=== PATIENT | female | born 1950 | race Caucasian/White ===

== ENCOUNTER 2018-07-22 10:55 | Emergency (ER) | payer MEDICARE, BC ==
[2018-07-22] MEDS ORDERED: ISOVUE-370 76%-LOCM 1 ML ONE (11:12)
[2018-07-22] MEDS ORDERED: Ondansetron HCl/PF 4 MG/2 ML Vial ONE (11:22)
[2018-07-22 11:42] LABS: #Monocytes 0.3 thou/uL (0.11-0.59); #Neutrophils 11.5 thou/uL (1.40-6.50); %Basophils 0.2 % (0.0-1.0); %Eosinophils 0.2 % (0.0-10.0); %Lymphocytes 14.1 % (21.0-51.0); %Monocytes 2.3 % (0.0-10.0); %Neutrophils 83.2 % (42.0-75.0); Hemoglobin 17.6 g/dL (12.0-16.0); Mean Corpuscular HGB CONC 33.2 g/dL (32.0-36.0); Mean Corpuscular Hemoglobin 31.9 pg (27.0-31.0); Mean Corpuscular Volume 95.9 fL (78.0-98.0); Mean Platelet Volume 7.7 fL (7.4-10.4); Platelet Count 371 thou/uL (130-400); RBC Distribution Width 12.8 % (11.5-14.5); Red Blood Cell (RBC) Count 5.52 mill/uL (4.20-5.40); White Blood Cell (WBC) Count 13.9 thou/uL (4.8-10.8)
[2018-07-22 12:00] LABS: ALT (SGPT) 30 U/L (8-55); AST (SGOT) 27 U/L (5-34); Albumin 4.9 g/dL (3.4-4.8); Alkaline Phosphatase 66 U/L (40-150); Anion Gap 17 mmol/L (10-20); BUN (Urea Nitrogen) 15 mg/dL (9.8-20.1); Bilirubin, Total 0.9 mg/dL (0.2-1.2); Calc. Creatinine Clearance 0 mL/min (70-130); Calcium 10.1 mg/dL (7.8-10.44); Carbon Dioxide 23 mmol/L (23-31); Chloride 102 mmol/L (98-107); Estimated GFR-MDRD 51; Globulin 3.6 g/dL (2.4-3.5); Glucose 144 mg/dL (80-115); Lipase 10 U/L (8-78); Potassium 3.2 mmol/L (3.5-5.1); Protein, Total 8.5 g/dL (6.0-8.3); Sodium 139 mmol/L (136-145)
[2018-07-22 12:48] LABS: Bilirubin Negative (Negative); Blood, Urine Moderate (Negative); Clarity CLEAR (Clear); Glucose, Urine (Dipstick) Negative (Negative); Leukocyte Negative (Negative); Nitrite Negative (Negative); Protein, Urine (Dipstick) 30 mg/dL (Neg-Trace); Specific Gravity, Urine 1.034 (1.002-1.036); Urobilinogen 0.2 mg/dL (0.2-1.0)
[2018-07-22] MEDS ORDERED: Meclizine HCl 25 MG TAB ONE (12:48)
[2018-07-22] MEDS ORDERED: Promethazine HCl 25 MG/ML VIAL ONE (12:48)
[2018-07-22 12:51] LABS: Bacteria/HPF None Seen HPF (None Seen); Hyaline Casts/LPF 0-3 HYALINE CAST LPF (0-3 Hyaline); Pathc Cast-AUWi Flag 0.43 (0-2.49)
--- NOTE | 2018-07-22 13:28 | CT ---
CT ABDOMEN AND PELVIS WITH IV CONTRAST: Date: 07/22/18 HISTORY: Abdominal pain. FINDINGS: Correlation is made with noncontrasted study of 04/11/16. The lung bases are clear. No free air, free fluid, or lymphadenopathy seen in the abdomen or pelvis. No calcified gallstones are seen. The liver, spleen, pancreas, and left adrenal gland are normal. A s mall (8.0 mm) right adrenal adenoma is stable. Small low density lesions in the kidneys are likely cy sts. Tiny nonobstructing calculi are present in the kidneys. No hydroureteronephrosis is noted on eit her side. No calculi seen in the ureters or the urinary bladder. There are vascular calcifications of the infrarenal abdominal aorta measuring 2.8 cm. No aneurysm is seen. The small bowel loops are not abnormally dilated. There are degenerative changes in the spine. A small hiatal hernia is present. IMPRESSION: 1. Nonobstructing tiny renal calculi. 2. Stable 8.0 mm right adrenal adenoma. 3. No acute process. 4. Small hiatal hernia. POS: [facility]
== END 2018-07-22 14:23 | disposition home or self-care (01) ==
LOC: ERS 10:55
DX: E86.0 Dehydration (principal); E87.6 Hypokalemia; I25.10 Atherosclerotic heart disease of native coronary artery without angina pectoris; I10 Essential (primary) hypertension; I25.2 Old myocardial infarction; Z87.891 Personal history of nicotine dependence; Z79.899 Other long term (current) drug therapy
CPT/HCPCS: 74177; 80053; 81003; 81015; 83690; 85025; 87633; 87798; 87804; 96361; 96365; 96375; J2405; J2550

== ENCOUNTER 2018-07-26 18:18 | Inpatient (IN) | payer MEDICARE, BC ==
[2018-07-26 19:24] LABS: #Basophils 0.2 thou/uL (0.0-0.2); #Lymphocytes 3.6 thou/uL (1.20-3.40); #Monocytes 1.1 thou/uL (0.11-0.59); #Neutrophils 9.7 thou/uL (1.40-6.50); %Basophils 1.1 % (0.0-1.0); %Eosinophils 0.1 % (0.0-10.0); %Lymphocytes 24.4 % (21.0-51.0); %Monocytes 7.7 % (0.0-10.0); %Neutrophils 66.7 % (42.0-75.0); Hemoglobin 18.3 g/dL (12.0-16.0); Mean Corpuscular HGB CONC 33.5 g/dL (32.0-36.0); Mean Corpuscular Hemoglobin 32.1 pg (27.0-31.0); Mean Corpuscular Volume 95.9 fL (78.0-98.0); Mean Platelet Volume 7.5 fL (7.4-10.4); Platelet Count 364 thou/uL (130-400); RBC Distribution Width 12.3 % (11.5-14.5); White Blood Cell (WBC) Count 14.6 thou/uL (4.8-10.8)
[2018-07-26 19:30] LABS: Bilirubin Negative (Negative); Blood, Urine Trace (Negative); Clarity CLEAR (Clear); Glucose, Urine (Dipstick) Negative (Negative); Leukocyte Negative (Negative); Nitrite Negative (Negative); Protein, Urine (Dipstick) Negative (Neg-Trace); Specific Gravity, Urine 1.004 (1.002-1.036); Urobilinogen 0.2 mg/dL (0.2-1.0); pH, Urine 6.5 (5.0-9.0)
[2018-07-26 19:38] LABS: Bacteria/HPF None Seen HPF (None Seen); Hyaline Casts/LPF 0-3 HYALINE CAST LPF (0-3 Hyaline); Squamous Epithelial None Seen HPF (0-3); WBC/HPF 0-3 HPF (0-3)
--- NOTE | 2018-07-26 19:43 | CT ---
CT OF HEAD NONCONTRAST: 07/26/18 INDICATION: Weakness, paresthesias. FINDINGS: There is no ventriculomegaly, mass effect, midline shift, or acute intracranial hemorrhage. 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 The paranasal sinuses are clear. IMPRESSION: No acute intracranial abnormalities. POS: [facility]
[2018-07-26 19:46] LABS: ALT (SGPT) 18 U/L (8-55); AST (SGOT) 16 U/L (5-34); Albumin 4.7 g/dL (3.4-4.8); Alkaline Phosphatase 57 U/L (40-150); Anion Gap 14 mmol/L (10-20); BUN (Urea Nitrogen) 14 mg/dL (9.8-20.1); Bilirubin, Total 0.8 mg/dL (0.2-1.2); Calc. Creatinine Clearance 0 mL/min (70-130); Calcium 9.7 mg/dL (7.8-10.44); Carbon Dioxide 22 mmol/L (23-31); Chloride 102 mmol/L (98-107); Estimated GFR-MDRD 62; Globulin 3.3 g/dL (2.4-3.5); Glucose 120 mg/dL (80-115); Potassium 3.4 mmol/L (3.5-5.1); Sodium 135 mmol/L (136-145)
--- NOTE | 2018-07-26 19:46 | RAD ---
FRONTAL VIEW CHEST: 07/26/18 INDICATION: Weakness. FINDINGS: There is no consolidation, effusion or pneumothorax. No free air beneath the hemidiaphragms. The card iac silhouette is normal in size. IMPRESSION: No focal consolidation. POS: [facility]
[2018-07-26] MEDS ORDERED: Ketorolac Tromethamine 30 MG/ML VIAL ONE (21:32)
[2018-07-26] MEDS ORDERED: Promethazine HCl 25 MG/ML VIAL ONE (21:32)
[2018-07-26] MEDS ORDERED: diphenhydrAMINE 12.5 MG/5 ML UDCUP ONE ×2 (21:32→22:01)
[2018-07-26] MEDS ORDERED: Ondansetron HCl/PF 4 MG/2 ML Vial ONE (21:32)
[2018-07-26] MEDS ORDERED: diphenhydrAMINE 25 MG CAP ONE (22:02)
[2018-07-26] MEDS ORDERED: Ondansetron HCl/PF 4 MG/2 ML Vial IVP PRN (23:06)
[2018-07-26] MEDS ORDERED: Acetaminophen 650 MG Suppository PR PRN (23:06)
[2018-07-26] MEDS ORDERED: Ondansetron ODT 4 MG TAB PO PRN (23:06)
[2018-07-27] MEDS: Acetaminophen 325 MG TAB PO PRN ×3 (00:01→17:58)
[2018-07-27] MEDS: Sodium Chloride 0.9% 1,000 ML IV SCH ×2 (00:08→17:56)
[2018-07-27 05:54] LABS: #Basophils 0.1 thou/uL (0.0-0.2); #Lymphocytes 3.1 thou/uL (1.20-3.40); #Monocytes 0.8 thou/uL (0.11-0.59); #Neutrophils 7.3 thou/uL (1.40-6.50); %Basophils 1.1 % (0.0-1.0); %Eosinophils 0.3 % (0.0-10.0); %Lymphocytes 27.2 % (21.0-51.0); %Monocytes 7.2 % (0.0-10.0); %Neutrophils 64.2 % (42.0-75.0); Hemoglobin 15.5 g/dL (12.0-16.0); Mean Corpuscular HGB CONC 33.4 g/dL (32.0-36.0); Mean Corpuscular Hemoglobin 31.9 pg (27.0-31.0); Mean Corpuscular Volume 95.4 fL (78.0-98.0); Mean Platelet Volume 7.6 fL (7.4-10.4); Platelet Count 299 thou/uL (130-400); RBC Distribution Width 12.2 % (11.5-14.5); Red Blood Cell (RBC) Count 4.87 mill/uL (4.20-5.40); White Blood Cell (WBC) Count 11.4 thou/uL (4.8-10.8)
[2018-07-27 06:02] LABS: ALT (SGPT) 12 U/L (8-55); AST (SGOT) 15 U/L (5-34); Albumin 3.8 g/dL (3.4-4.8); Alkaline Phosphatase 49 U/L (40-150); Anion Gap 11 mmol/L (10-20); BUN (Urea Nitrogen) 13 mg/dL (9.8-20.1); Calc. Creatinine Clearance 77 mL/min (70-130); Calcium 8.7 mg/dL (7.8-10.44); Carbon Dioxide 24 mmol/L (23-31); Chloride 105 mmol/L (98-107); Estimated GFR-MDRD 78; Globulin 2.7 g/dL (2.4-3.5); Glucose 111 mg/dL (80-115); Potassium 3.5 mmol/L (3.5-5.1); Protein, Total 6.5 g/dL (6.0-8.3); Sodium 136 mmol/L (136-145)
--- NOTE | 2018-07-27 07:48 | CON ---
DATE OF CONSULTATION: 07/27/2018 CONSULTING PHYSICIAN: Hospitalist service. IMPRESSION: 1. Possible transient ischemic attack with transient left-sided weakness. 2. Persistent nausea and vomiting for 3 weeks of uncertain etiology, possibly relating in some secon lori dehydration. PLAN: 1. Carotid Doppler. 2. Echocardiogram. 3. Restart aspirin. Ms. Styles is a 68-year-old white female, who reports, over the last 3 weeks, she has had persisten t bouts of nausea and vomiting. There apparently is a similar phenomenon going on in the family. Ericka hess was seen in the emergency room on 2 separate occasions prior to this and just treated for the nause a. She has had some intermittent diaphoresis and possibly some fever. She had hemorrhoidal bleeding about 3 days ago and discontinued her aspirin. She has a history of hypertension and is uncertain a s to what her blood pressure was doing. She had an episode yesterday with left arm weakness and poss ibly some left leg weakness. She was told that her speech sounded a bit slurred. She also had a tra nsient headache. She came to the emergency room for evaluation. Her CT scan of the brain was unrema rkable. She was mildly hypertensive. Her symptoms lasted about 2 hours and then resolved. She has never had anything like this before. Her lab work included a CBC, which showed an elevated white cou nt as well as elevated hemoglobin. Her chemistry panel was unremarkable with normal BUN and creatini ne. Urinalysis was clear. PAST MEDICAL HISTORY: Hypertension. ALLERGIES: None. SOCIAL HISTORY: No tobacco or alcohol use. FAMILY HISTORY: Noncontributory. MEDICATION LIST: Reviewed. REVIEW OF SYSTEMS: No chest pain, shortness of breath, double vision, blurred vision. PHYSICAL EXAMINATION: GENERAL: She is alert and appropriate and is in no acute distress. VITAL SIGNS: Blood pressure 169/81, pulse 67, respirations 18, temperature 98.6. HEENT: Pupils equal and reactive. Conjunctivae clear. Oropharynx clear. NECK: Supple. EXTREMITIES: No cyanosis. NEUROLOGIC EXAM: She is alert and appropriate. Her speech is fluent and clear. Cranial nerves are intact. Motor exam showed symmetric strength without fix or drift. Cerebellar testing showed normal [id number] and rapid alternating movements. Sensation is intact to touch. She is able to sit a nd stand appropriately. CT scan of the brain was reviewed. SUMMARY: This is a 68-year-old woman, who has had some persistent nausea and vomiting for 3 weeks wi th transient left-sided weakness. She is probably a bit dehydrated. She is off her aspirin for 3 da ys. She may have had a transient ischemic attack secondary to these ongoing problems. We can comple te her workup from a neurologic perspective. Gastrointestinal workup may be of value to determine wh at the source of nausea and vomiting is.
[2018-07-27] MEDS ORDERED: Prevnar 13-Val Conj/PF 0.5 ML SYRINGE IM ONE (09:00)
[2018-07-27] MEDS: Famotidine/PF 20 mg/2ml Vial SLOW IVP SCH ×2 (09:34→21:09)
--- NOTE | 2018-07-27 12:25 | MRI ---
MR ANGIOGRAM OF [place]: Date: 07/27/18 HISTORY: Fall. Weakness. COMPARISON: None. TECHNIQUE: MR angiogram of the [place] is performed in the axial plane utilizing 3D adom-ct-kquvkl imag ing. Maximum intensity projection images are submitted for interpretation. FINDINGS: There is symmetric flow-related signal in the distal cervical and intracranial internal carotid arter ies. Anterior Circulation: Symmetric flow-related signal in the A1 and M1 segments. Proximal A2 segments and proximal MCA branches have appropriate flow-related signal. There is flow-related signal in the a nterior communicating artery. Posterior Circulation: The left vertebral artery is dominant. There is flow-related signal in both v ertebral arteries. Neither PICA artery origin can be adequately assessed. Basilar artery and T1 segme nts have appropriate flow-related signal. IMPRESSION: Unremarkable MR angiogram of the [place]. POS: [facility]
[2018-07-27] MEDS: Metoclopramide HCl 10 MG/2 ML VIAL IVP SCH ×2 (12:43→17:26)
--- NOTE | 2018-07-27 13:40 | MRI ---
MRI BRAIN WITHOUT CONTRAST: Date: 07/27/18 HISTORY: Weakness, tingling of arms. FINDINGS: Correlation is made with the previous day's CT scan. There is a small linear area of restricted diffusion in the left cerebellar hemisphere. This also dem onstrates decreased signal on the ADC maps. No evidence of hemorrhage, midline shift, or abnormal ext ra-axial fluid collections are seen. Multiple foci of T2 prolongation are seen in the periventricular white matter consistent with chronic small vessel ischemic disease. Visualized paranasal sinuses and mastoid air cells are well aerated. IMPRESSION: Findings suggestive of recent small linear infarction in the left cerebellar hemisphere. POS: [facility]
--- NOTE | 2018-07-27 17:24 | RAD ---
SINGLE CONTRAST UPPER GI WITH SMALL BOWEL FOLLOW THROUGH: Date: 07/27/18 HISTORY: Nausea and vomiting. FINDINGS: The scouts film demonstrates a normal bowel gas pattern. Swallowing was grossly normal. There is unobstructed flow of contrast from the esophagus into the sto mach, duodenum, and proximal jejunum. A small hiatal hernia is seen. No ulcer, stricture, mass, or di verticulum is seen in the esophagus, stomach, or duodenum. There is normal transit of contrast through the small bowel loops into the colon. No abnormal loop se paration or dilatation is seen. Mucosal pattern in the small bowel loops is normal. Spot compression under fluoroscopy demonstrates no abnormalities. IMPRESSION: Small hiatal hernia, otherwise unremarkable exam. POS: [facility]
[2018-07-28] MEDS: Metoclopramide HCl 10 MG/2 ML VIAL IVP SCH ×2 (00:37→05:55)
[2018-07-28 05:10] VITALS: BMI 26.5
[2018-07-28 05:57] LABS: Anion Gap 12 mmol/L (10-20); BUN (Urea Nitrogen) 7 mg/dL (9.8-20.1); Calc. Creatinine Clearance 71 mL/min (70-130); Calcium 9.1 mg/dL (7.8-10.44); Carbon Dioxide 26 mmol/L (23-31); Chloride 104 mmol/L (98-107); Estimated GFR-MDRD 72; Glucose 98 mg/dL (80-115); Potassium 3.8 mmol/L (3.5-5.1); Sodium 138 mmol/L (136-145)
[2018-07-28 06:07] LABS: #Lymphocytes 2.5 thou/uL (1.20-3.40); #Monocytes 0.8 thou/uL (0.11-0.59); #Neutrophils 5.6 thou/uL (1.40-6.50); %Basophils 0.5 % (0.0-1.0); %Eosinophils 0.5 % (0.0-10.0); %Lymphocytes 27.9 % (21.0-51.0); %Monocytes 8.7 % (0.0-10.0); %Neutrophils 62.3 % (42.0-75.0); Hemoglobin 15.9 g/dL (12.0-16.0); Mean Corpuscular Hemoglobin 31.8 pg (27.0-31.0); Mean Corpuscular Volume 96.3 fL (78.0-98.0); Mean Platelet Volume 7.7 fL (7.4-10.4); Platelet Count 303 thou/uL (130-400); RBC Distribution Width 12.4 % (11.5-14.5); Red Blood Cell (RBC) Count 5.01 mill/uL (4.20-5.40); White Blood Cell (WBC) Count 8.9 thou/uL (4.8-10.8)
[2018-07-28] MEDS: Acetaminophen 325 MG TAB PO PRN ×2 (10:27→16:28)
[2018-07-28] MEDS: Famotidine/PF 20 mg/2ml Vial SLOW IVP SCH ×2 (10:27→23:51)
--- NOTE | 2018-07-28 15:06 | PDOC.PN ---
- Subjective Encounter Start Date: 07/28/18 Encounter Start Time: 11:15 Pt did well overnight. andres clears, andres IV reglan, no n/V. MRI results reviewed, small recent linear infarct likely not related to current complaints Pt walked with PT, was discharged No F/C, no D/C, no CP or SOB, feels intermittently weak All systems reviewed and neg x as per HPI - Objective MAR Reviewed: Yes Vital Signs & Weight: Vital Signs (12 hours) Temp Pulse Pulse Pulse Resp BP BP 07/28/18 13:52 72 96 161/69 H 132/77 07/28/18 11:59 99.2 F 72 20 07/28/18 08:00 98.9 F 93 16 07/28/18 04:00 98.4 F 83 19 BP Pulse Ox 07/28/18 13:52 07/28/18 11:59 158/97 H 97 07/28/18 08:00 127/67 97 07/28/18 04:00 117/70 96 Weight Admit Weight 145 lb 6.4 oz Weight 145 lb 4 oz I&O: 07/27/18 07/28/18 07/29/18 06:59 06:59 06:59 Intake Total 375 1940 Balance 375 1940 Result Diagrams: 07/28/18 05:30 07/28/18 05:30 Radiology Reviewed by me: Yes EKG Reviewed by me: Yes Phys Exam - Physical Examination Constitutional: NAD HEENT: PERRLA, moist MMs, sclera anicteric, oral pharynx no lesions Neck: no nodes, no JVD, supple, full ROM Respiratory: no wheezing, no rales, no rhonchi, clear to auscultation bilateral Cardiovascular: RRR, no significant murmur, no rub Gastrointestinal: soft, non-tender, no distention, positive bowel sounds Musculoskeletal: edema present Neurological: non-focal, normal sensation, moves all 4 limbs Lymphatic: no nodes Psychiatric: normal affect, A&O x 3 Skin: no rash, normal turgor, cap refill <2 seconds Dx/Plan (1) Acute cerebrovascular accident (CVA) of cerebellum Code(s): I63.9 - CEREBRAL INFARCTION, UNSPECIFIED Status: Acute Comment: small, linear, left cerebella,r doubt related to symptoms. ASA, Statin (2) Hiatal hernia Code(s): K44.9 - DIAPHRAGMATIC HERNIA WITHOUT OBSTRUCTION OR GANGRENE Status: Acute Comment: may be related to N/V. IV to po reglan, advacne diet, (3) Intractable nausea and vomiting Code(s): R11.2 - NAUSEA WITH VOMITING, UNSPECIFIED Status: Resolved Qualifiers: Vomiting type: unspecified Qualified Code(s): R11.2 - Nausea with vomiting , unspecified (4) CAD (coronary artery disease), [place] coronary artery Code(s): I25.10 - ATHSCL HEART DISEASE OF [place] CORONARY ARTERY W/O ANG PCTRS Status: Chronic Qualifiers: [place] vs. transplanted heart: [place] heart Associated angina: without angina Qualified Code(s): I25.10 - Atherosclerotic heart disease of [place] coronary artery without angina pectoris (5) HTN (hypertension) Code(s): I10 - ESSENTIAL (PRIMARY) HYPERTENSION Status: Chronic Qualifiers: Hypertension type: essential hypertension Qualified Code(s): I10 - Essential (primary) hypertension (6) HLD (hyperlipidemia) Code(s): E78.5 - HYPERLIPIDEMIA, UNSPECIFIED Status: Chronic Qualifiers: Hyperlipidemia type: unspecified Qualified Code(s): E78.5 - Hyperlipidemia , unspecified - Plan cont current plan of care, plan discussed w/ family, PT/OT, out of bed/ambulate * .
[2018-07-28] MEDS: Metoclopramide HCl 10 MG TAB PO SCH ×3 (16:28→23:51)
--- NOTE | 2018-07-28 17:53 | ULT ---
CAROTID ARTERIAL DOPPLER ULTRASOUND 07/28/18 COMPARISON: None. HISTORY: CVA. TECHNIQUE: Multiplanar harris scale sonographic imaging of the arterial structures of the neck obtained with color flow and spectral analysis. IMPRESSION: Antegrade blood flow and normal arterial waveforms are documented within the carotid and vertebral sy stem bilaterally. There is calcified plaque within the proximal right internal carotid artery and the proximal right External carotid artery. VESSEL: PSV (cm/s) EDV (cm/s) Right CCA 87 10 Right ICA 53 17 Right ECA 67 5 Left CCA 83 10 Left ICA 74 13 Left ECA 81 7 ICA/CCA ratio is 0.6 on the right and 0.9 on the left. IMPRESSION: No hemodynamically significant stenosis on the basis of sonographic velocity criteria. POS: [facility]
--- NOTE | 2018-07-28 18:09 | EKG ---
Test Reason : Blood Pressure : / mmHG Vent. Rate : 096 BPM Atrial Rate : 096 BPM P-R Int : 134 ms QRS Dur : 084 ms QT Int : 406 ms P-R-T Axes : 054 061 021 degrees QTc Int : 512 ms Normal sinus rhythm Possible Left atrial enlargement Nonspecific ST abnormality Prolonged QT Abnormal ECG Confirmed by MCKINLEY GAN D.O. ([id number]), scientific editor LUDA PERRY ([id number]) on 07/28/2018 6:09:14 PM Referred By: Confirmed By:MCKINLEY GAN D.O.
[2018-07-28] MEDS ORDERED: ICOSAPENT ETHYL PO SCH (21:00)
[2018-07-28] MEDS ORDERED: Rosuvastatin 20 MG TAB PO SCH (21:00)
[2018-07-29] MEDS ORDERED: FLUoxetine HCl 20 MG CAP PO SCH (09:00)
[2018-07-29] MEDS: Famotidine/PF 20 mg/2ml Vial SLOW IVP SCH (09:10)
[2018-07-29] MEDS: Metoclopramide HCl 10 MG TAB PO SCH ×2 (09:12→12:31)
[2018-07-29 11:54] VITALS: BP 127/86; TEMP 98.2
[2018-07-29] MEDS ORDERED: Aspirin 325 mg Enteric Coated Tablet PO SCH (12:30)
--- NOTE | 2018-07-29 17:22 | DIS ---
DATE OF ADMISSION: 07/27/2018 DATE OF DISCHARGE: 07/29/2018 PRIMARY CARE PHYSICIAN: Jarrell Olivares M.D. DISCHARGE DIAGNOSES: 1. Subacute left cerebellar linear small infarct on the left. 2. same level. 3. Essential hypertension. 4. Intractable nausea and vomiting and abdominal pain secondary to hiatal hernia. 5. History of coronary artery disease without angina. CONSULTATIONS: Dr. Akbar Sullivan, 07/27/2018. PROCEDURES: 1. Brain MRI and MRA. MRA was normal. MRI showed a very small recent linear infarct of the left ce rebellum. 2. Upper GI with small bowel follow through that showed a small hiatal hernia, but otherwise normal study. 3. On 07/28/2018, carotid Doppler study showed no hemodynamically significant stenosis. HISTORY AND PHYSICAL: Ms. Styles is a 68-year-old female with several weeks of intractable nausea and vomiting that comes episodically. She has not been eating or keeping fluids down well. She had a fall at home and was brought to the Emergency Department for evaluation. Here, she was found to have normal labs, but due to her neurologic concern, she was admitted to fo r stroke workup. HOSPITAL COURSE: The patient was seen and examined by me in the morning as she was a holdover from [facility]. The case was discussed at length with her window framer daughter. MRI and MRA were do ne that was unremarkable. Upper GI showed a small hiatal hernia. The patient . She was contin ued on Reglan and liquid diet overnight 07/27/2018 to 07/28/2018 and on 07/28/2018 was feeling much b josee. She was advanced on her diet. Carotid Doppler was obtained that was unremarkable and PT, OT consults were requested. She was seen by both and recommended home health care with PT and today, 07/29/2018, she was stable f or discharge with outpatient followup. She has no further nausea and vomiting. PHYSICAL EXAMINATION: The patient was seen and examined on the day of discharge. Discharge plan and disposition were discussed with the patient and her other daughter [id number] at the bedside. DISCHARGE MEDICATIONS: New medications, 1. Reglan 10 mg p.o. q.i.d. a.c. and at bedtime scheduled, prescription sent. 2. Aspirin 81 mg daily. Home medications to continue, 1. Fluoxetine 20 mg p.o. daily. 2. Vascepa 4 g p.o. at bedtime. 3. Isosorbide mononitrate 30 mg p.o. daily. 4. Toprol XL 12.5 mg daily. 5. Crestor 40 mg p.o. q.p.m. DISCHARGE CONDITION: Stable. DISPOSITION: Discharged home via private vehicle to home health care with PT and OT. DISCHARGE CONDITION: Good. FOLLOWUP APPOINTMENTS: 1. Primary care physician within a week. 2. Dr. Akbar Sullivan as needed.
== END 2018-07-29 13:53 | disposition home or self-care (01) | DRG 66 ==
LOC: ERS 18:18 → 2SE 23:04 → OBSVTOIN 07-27 16:57
PROVIDERS: ADMIT Internal Medicine; ATTEND Internal Medicine
DX: I63.9 Cerebral infarction, unspecified (principal); I10 Essential (primary) hypertension; K44.9 Diaphragmatic hernia without obstruction or gangrene; I25.10 Atherosclerotic heart disease of native coronary artery without angina pectoris
CPT/HCPCS: 36415; 70450; 70544; 70551; 71045; 74245; 80048; 80053; 81003; 81015; 83735; 85025; 90471; 90662; 90670; 93005; 93880; 96361; 96374; 96375; G0008; G0009; G8978-GP-CH; G8979-GP-CH; G8980-GP-CH; G8987-GO-CI; G8988-GO-CI; G8989-GO-CI; G8996-GN-CH; G8997-GN-CH; J1885; J2405; J2550; J2765; Q0162; S0028

== ENCOUNTER 2018-07-30 11:03 | Observation (INO) | payer MEDICARE, BC ==
[2018-07-30 11:50] LABS: #Basophils 0.1 thou/uL (0.0-0.2); #Lymphocytes 2.8 thou/uL (1.20-3.40); #Monocytes 0.8 thou/uL (0.11-0.59); #Neutrophils 8.9 thou/uL (1.40-6.50); %Basophils 0.9 % (0.0-1.0); %Eosinophils 0.2 % (0.0-10.0); %Lymphocytes 22.2 % (21.0-51.0); %Monocytes 6.6 % (0.0-10.0); %Neutrophils 70.1 % (42.0-75.0); Hemoglobin 17.7 g/dL (12.0-16.0); Mean Corpuscular HGB CONC 34.5 g/dL (32.0-36.0); Mean Corpuscular Volume 95.8 fL (78.0-98.0); Mean Platelet Volume 8.1 fL (7.4-10.4); Platelet Count 326 thou/uL (130-400); RBC Distribution Width 12.3 % (11.5-14.5); Red Blood Cell (RBC) Count 5.35 mill/uL (4.20-5.40); White Blood Cell (WBC) Count 12.8 thou/uL (4.8-10.8)
--- NOTE | 2018-07-30 12:00 | CT ---
HEAD CT NONCONTRAST: Date: 07/30/18 INDICATION: Altered vision, stroke. FINDINGS: There is no intracranial hemorrhage, mass effect, or midline shift. Mild ischemic disease is seen wit hin the bilateral cerebral hemispheres. IMPRESSION: No acute intracranial hemorrhage or mass effect. Telephone call findings placed to ER physician at 1139 hours on 07/30/18. CODE CR. POS: [facility]
[2018-07-30 12:11] LABS: ALT (SGPT) 20 U/L (8-55); AST (SGOT) 25 U/L (5-34); Albumin 4.9 g/dL (3.4-4.8); Alkaline Phosphatase 61 U/L (40-150); Anion Gap 17 mmol/L (10-20); BUN (Urea Nitrogen) 14 mg/dL (9.8-20.1); Bilirubin, Total 0.7 mg/dL (0.2-1.2); CK (CPK) 225 U/L (29-168); Calc. Creatinine Clearance 0 mL/min (70-130); Carbon Dioxide 24 mmol/L (23-31); Chloride 101 mmol/L (98-107); Estimated GFR-MDRD 55; Glucose 157 mg/dL (80-115); Lipase 34 U/L (8-78); Potassium 3.5 mmol/L (3.5-5.1); Protein, Total 7.9 g/dL (6.0-8.3); Sodium 138 mmol/L (136-145)
[2018-07-30 12:16] LABS: CKMB 4.5 ng/mL (0-6.6); Troponin I 0.035 ng/mL (< 0.028)
[2018-07-30 13:16] LABS: Bilirubin Negative (Negative); Blood, Urine Trace (Negative); Clarity CLEAR (Clear); Glucose, Urine (Dipstick) Negative (Negative); Leukocyte Negative (Negative); Nitrite Negative (Negative); Protein, Urine (Dipstick) Negative (Neg-Trace); Urobilinogen 0.2 mg/dL (0.2-1.0); pH, Urine 6.5 (5.0-9.0)
[2018-07-30 13:17] LABS: Bacteria/HPF None Seen HPF (None Seen); Hyaline Casts/LPF 4-6 HYALINE CAST LPF (0-3 Hyaline); Pathc Cast-AUWi Flag 0.58 (0-2.49); Squamous Epithelial 0-3 HPF (0-3)
[2018-07-30 13:18] LABS: Specific Gravity, Urine Greater than 1.060 (1.002-1.036)
--- NOTE | 2018-07-30 13:25 | CT ---
CT ANGIOGRAM OF THE HEAD CT ANGIOGRAM OF THE NECK: DATE: 07/30/2018. COMPARISON: None. HISTORY: Sudden onset of right arm and right leg drift. TECHNIQUE: Serial axial CT imaging obtained at 1.25 mm intervals from the vertex through the lung apices with IV contrast using a CT angiogram protocol. Coronal and sagittal 3D reformatted imaging obtained. FINDINGS: The imaged lung apices demonstrate linear increased interstitial density as well as centrilobular and subpleural emphysematous change. There is atherosclerotic calcification of the aortic arch. No hemodynamically significant stenosis is seen involving the origin of the innominate artery, the le ft subclavian artery, or the left common carotid artery. Origin of the left subclavian artery and le ft common carotid artery appears unremarkable. There is mild stenosis at the origin of the left vertebral artery. Bilateral vertebral arteries are otherwise normal. On the basis of NASCET criteria, there is no hemodynamically significant stenosis involving common ca rotid artery on either side. There is no hemodynamically significant stenosis involving the internal carotid artery on the right. There is a focal area of stenosis at the origin of the internal carotid artery on the left, the arter ial lumen narrowed to 2.5 cm in AP dimension, which correlates with a 30% stenosis. No hemodynamical ly significant stenosis is seen involving the left internal carotid artery. The retroantral fat and parapharyngeal fat appears clear bilaterally. No aerodigestive tract lesion or lymphadenopathy is apparent. The basilar artery is patent. Bilateral posterior cerebral arteries are patent. There is no sacula r aneurysm, high-grade stenosis, or vascular occlusion involving the posterior circulation. There is atherosclerotic calcification of the cavernous carotid arteries bilaterally. The A1 segment on the left is hypoplastic. Proximal PIOTR branches appear patent bilaterally. The right anterior cerebral artery is attenuated in its mid portion suggesting underlying hemodynamically significant disease. The M1 segment appears patent bilaterally. The MCA bifurcation appears grossly unremarkable. Bilate ral M2 branches within the Sylvian fissures appear patent and are relatively hypoplastic bilaterally. Review of the osseous structures demonstrates no worrisome lytic or blastic lesion. IMPRESSION: 1. No hemodynamically significant stenosis within the carotid system on either side. 2. No central arterial occlusion is noted. The distal right anterior cerebral artery is attenuated, chronicity uncertain. Results called to Dr. Valle at 12:18 p.m. 07/30/2018. CODE CR POS: [facility]
[2018-07-30] MEDS ORDERED: methylPREDNISolone Sod Succ/PF 125 MG/2 ML VIAL ONE (14:05)
[2018-07-30] MEDS ORDERED: Water For Inject, Bacteriostat 0 ML ONE (14:06)
[2018-07-30 14:10] LABS: CSF Source CSF; Clarity Clear (Clear); Tube # 4
[2018-07-30 14:11] LABS: RBC Count - Manual 0 /cumm (None Seen); WBC/NonHematics Count - Manual 1 /cumm (0-5)
[2018-07-30 14:15] LABS: Color Of CSF Supernatant COLORLESS (Colorless); Tube # 2; Unspun CSF Color COLORLESS (Colorless)
[2018-07-30 14:20] LABS: CSF, Glucose 75 mg/dl (40-70); CSF, Protein 67 mg/dL (15-40)
[2018-07-30 14:22] LABS: CSF Source CSF; Clarity Clear (Clear); Tube # 1; WBC/NonHematics Count - Manual 2 /cumm (0-5)
[2018-07-30 14:23] LABS: RBC Count - Manual 4 /cumm (None Seen)
--- NOTE | 2018-07-30 15:05 | MRI ---
MRI BRAIN NONCONTRAST: Date: 07/30/18 Reference made to 07/27/18. INDICATION: TIA/CVA. FINDINGS: Ventricular system is normal in size. Midline structures are maintained. There is mild chronic ischem ic disease of the cerebral white matter. There is a focus of restricted diffusion of the left cerebel lar hemisphere indicative of acute ischemia. No parenchymal hemorrhagic susceptibility. Skull base fl ow-voids are maintained. IMPRESSION: 1. Small focus of restricted diffusion in the left cerebellar hemisphere consistent with a recent in farction. 2. There is no acute intracranial mass effect or midline shift. POS: [facility]
[2018-07-30] MEDS ORDERED: ISOVUE-370 76%-LOCM 1 ML ONE (15:14)
[2018-07-30] MEDS ORDERED: Sodium Chloride 0.9% 1,000 ML IV SCH (15:45)
[2018-07-30] MEDS ORDERED: Ondansetron ODT 4 MG TAB PO PRN (16:04)
[2018-07-30] MEDS ORDERED: Ondansetron HCl/PF 4 MG/2 ML Vial IVP PRN (16:04)
[2018-07-30] MEDS ORDERED: hydrALAZINE 20 MG/ML VIAL SLOW IVP PRN (16:07)
[2018-07-30] MEDS ORDERED: Labetalol HCl 100 MG/20 ML VIAL SLOW IVP PRN (16:07)
[2018-07-30 17:09] VITALS: BMI 26.2
[2018-07-30] MEDS: Sodium Chloride 0.9% 1,000 ML IV SCH ×2 (17:23→21:01)
--- NOTE | 2018-07-30 18:21 | HP ---
DATE OF ADMISSION: 07/30/2018 PRIMARY CARE PHYSICIAN: Jarrell Olivares M.D. CHIEF COMPLAINT: Stroke-like symptoms. HISTORY OF PRESENT ILLNESS: The patient is a 68-year-old female who was discharged from this facilit y with a diagnosis of left cerebellar CVA, presented to the emergency room with above complaints. The patient currently lives at home with her . She felt weak this morning and was unable to g et up. She also noticed some right-sided weakness along with blurriness of vision. Lately she has n ot been eating and drinking due to persistent nausea over the past 2-3 weeks. She was brought to the emergency room. In the emergency room, she had an episode of syncope lasting for around 40 seconds. Her pupils were pinpoint and she was not following any commands. After 40 seconds, she was back to normal. There wa s no seizure-like activity reported. Her NIH in the emergency room was 3. She underwent a lumbar pu ncture in the emergency room. PAST MEDICAL HISTORY: 1. Hypertension. 2. Coronary artery disease, status post myocardial infarction. 3. Recent left cerebellar cerebrovascular accident. 4. Hyperlipidemia. 5. Anxiety and depression. PAST SURGICAL HISTORY: 1. Total hysterectomy. 2. Appendectomy. ALLERGIES: No known drug allergies. CURRENT HOME MEDICATIONS: 1. Aspirin 81 mg daily. 2. Reglan that was started last admission. 3. Toprol XL 12.5 mg daily. 4. Imdur ER 30 mg daily. 5. Vascepa 4 capsules at bedtime. 6. Prozac 20 mg daily. 7. Crestor 40 mg q.p.m. SOCIAL HISTORY: The patient is a former smoker. Currently lives at home with her . She is f ull code. She makes her own decision with the help of her family. FAMILY HISTORY: Negative for premature coronary artery disease. REVIEW OF SYSTEMS: The following complete review of systems was negative, unless otherwise mentioned in the HPI or below: Constitutional: Weight loss or gain, ability to conduct usual activities. Sk in: Rash, itching. Eyes: Double vision, pain. ENT/Mouth: Nose bleeding, neck stiffness, pain, te nderness. Cardiovascular: Palpitations, dyspnea on exertion, orthopnea. Respiratory: Shortness of breath, wheezing, cough, hemoptysis, fever or night sweats. Gastrointestinal: Poor appetite, abdom inal pain, heartburn, nausea, vomiting, constipation, or diarrhea. Genitourinary: Urgency, frequenc y, dysuria, nocturia. Musculoskeletal: Pain, swelling. Neurologic/Psychiatric: Anxiety, depressio n. Allergy/Immunologic: Skin rash, bleeding tendency. PHYSICAL EXAMINATION: VITAL SIGNS: Temperature 98.3, respirations of 13, pulse rate of 101, blood pressure of 154/103 with O2 saturation 97% on room air. GENERAL: A 68-year-old female, in no apparent distress. Weakness has completely resolved. HEENT: Head, atraumatic, normocephalic. Sclerae are anicteric. Dry mucous membrane. No oral lesio n. NECK: Supple. No JVD appreciated. No carotid bruit. LUNGS: Clear to auscultation bilaterally. HEART: S1, S2 present. Regular rate and rhythm. No murmur, rubs or gallops appreciated. ABDOMEN: Soft, nontender. Bowel sounds present. EXTREMITIES: No edema or calf tenderness. NEUROLOGIC: Grossly nonfocal. Moves all four extremities. PSYCHIATRY: Alert, awake, oriented x3. SKIN: Warm and dry. LYMPH NODES: No palpable lymph nodes in the neck. PERIPHERAL VASCULAR: Radial pulses palpable bilaterally. MUSCULOSKELETAL: No joint swelling or tenderness. LABORATORY FINDINGS: CBC showed WBC 12.8 with hemoglobin 17.7, hematocrit 51.2, platelet count of 32 6,000. ESR was 26. Chemistries showed sodium 138, potassium 3.5, chloride 101, bicarb 24, BUN of 14 , creatinine 1.01 with calcium 11. Troponins in the indeterminate range at 0.035. CRP 0.53. Vitami n B12 and folic acid in normal range. Ammonia was normal. Lumbar puncture studies showed WBC of 1 w ith glucose of 75, total protein of 67. Urinalysis showed urine specific gravity greater than 1.060 with 4-6 wbc's and hyaline cast. CSF Gram stain was negative for bacterial infection. CT scan of the brain was negative for acute findings. CT angiogram of the head and neck was essentia lly negative. EKG by my review showed sinus rhythm with premature atrial complexes and nonspecific ST-T wave change s. IMPRESSION: 1. Transient ischemic attack. 2. Syncope in the emergency room, lasting for 40 seconds or so. 3. Recent left cerebellar cerebrovascular accident, on aspirin 81 mg daily. 4. Dehydration. 5. Chronic kidney disease stage 3. 6. Elevated troponins, probably secondary to demand ischemia. 7. Hypertension. 8. Recurrent nausea and vomiting with left ear tinnitus. 9. Coronary artery disease. 10. Hyperlipidemia. 11. Anxiety and depression. PLAN: The patient will be monitored in the stroke unit. We will continue aspirin at 325 mg daily. Neurology will be consulted. We will get echocardiogram. We will monitor serial troponins. We will resume all other home medications except for Imdur. IV hydration. We will repeat labs in a.m. Plan of care was discussed with the patient and the family in detail. They stated understanding.
[2018-07-30 18:53] LABS: Troponin I 0.046 ng/mL (< 0.028)
[2018-07-30] MEDS: Famotidine 20 MG TAB PO SCH (21:00)
[2018-07-30] MEDS: Rosuvastatin 20 MG TAB PO SCH (21:00)
[2018-07-30] MEDS: Meclizine HCl 25 MG TAB PO SCH (21:00)
[2018-07-30] MEDS: Acetaminophen 325 MG TAB PO PRN (22:17)
[2018-07-31] MEDS: Sodium Chloride 0.9% 1,000 ML IV SCH ×5 (01:12→17:41)
[2018-07-31 05:25] LABS: Anion Gap 12 mmol/L (10-20); BUN (Urea Nitrogen) 13 mg/dL (9.8-20.1); Calc. Creatinine Clearance 81 mL/min (70-130); Calcium 9.1 mg/dL (7.8-10.44); Carbon Dioxide 22 mmol/L (23-31); Cardiac Risk 3.1 (Less than 4.5); Chloride 107 mmol/L (98-107); Cholesterol 104 mg/dl (< 200 Desired); Estimated GFR-MDRD 85; Glucose 123 mg/dL (80-115); HDL Cholesterol 34 mg/dL (>60 Neg Risk); LDL Cholesterol, Calculated 57 mg/dL; Potassium 3.7 mmol/L (3.5-5.1); Sodium 137 mmol/L (136-145); Triglycerides 65 mg/dL (Less than 150)
[2018-07-31 05:50] LABS: #Basophils 0.1 thou/uL (0.0-0.2); #Monocytes 0.7 thou/uL (0.11-0.59); #Neutrophils 7.1 thou/uL (1.40-6.50); %Basophils 1.2 % (0.0-1.0); %Lymphocytes 20.5 % (21.0-51.0); %Monocytes 6.8 % (0.0-10.0); %Neutrophils 71.5 % (42.0-75.0); Hemoglobin 14.4 g/dL (12.0-16.0); Mean Corpuscular HGB CONC 33.7 g/dL (32.0-36.0); Mean Corpuscular Hemoglobin 32.3 pg (27.0-31.0); Mean Corpuscular Volume 95.9 fL (78.0-98.0); Mean Platelet Volume 7.8 fL (7.4-10.4); Platelet Count 301 thou/uL (130-400); RBC Distribution Width 12.2 % (11.5-14.5); Red Blood Cell (RBC) Count 4.45 mill/uL (4.20-5.40)
[2018-07-31] MEDS: Famotidine 20 MG TAB PO SCH ×2 (08:04→20:14)
[2018-07-31] MEDS: Meclizine HCl 25 MG TAB PO SCH ×3 (08:04→20:16)
[2018-07-31] MEDS: Aspirin 325 mg Enteric Coated Tablet PO SCH (08:04)
[2018-07-31] MEDS: FLUoxetine HCl 20 MG CAP PO SCH (08:06)
--- NOTE | 2018-07-31 17:41 | PDOC.PN ---
- Subjective Encounter Start Date: 07/31/18 Encounter Start Time: 16:30 Subjective: TIA, 40 second syncope episode yesterday, feels better today -: Walking the halls, no new syncopal episodes - Objective Resuscitation Status: Resuscitation Status FULL:Full Resuscitation MAR Reviewed: Yes Vital Signs & Weight: Vital Signs (12 hours) Temp Pulse Pulse Pulse Resp BP BP 07/31/18 16:00 98.5 F 71 18 07/31/18 11:45 98.7 F 74 20 07/31/18 09:03 82 80 146/89 H 139/74 07/31/18 08:00 97.8 F 80 16 BP BP BP Pulse Ox 07/31/18 16:00 142/81 H 97 07/31/18 11:45 139/81 96 07/31/18 09:03 07/31/18 08:00 122/68 113/78 162/81 H 94 L Weight Admit Weight 64.864 kg Weight 64.864 kg I&O: 07/30/18 07/31/18 08/01/18 06:59 06:59 06:59 Intake Total 3251 Balance 3251 Result Diagrams: 07/31/18 04:49 07/31/18 04:49 Radiology Reviewed by me: Yes (no acute findings) <Emani Maloney - Last Filed: 07/31/18 17:39> - Objective Resuscitation Status: Resuscitation Status FULL:Full Resuscitation Vital Signs & Weight: Vital Signs (12 hours) Temp Pulse Resp BP Pulse Ox 08/01/18 04:00 98.1 F 72 16 124/62 95 08/01/18 00:00 98.3 F 72 20 125/60 94 L 07/31/18 20:00 98.4 F 68 16 153/72 H 96 Weight Admit Weight 143 lb Weight 145 lb 4.8 oz I&O: 07/31/18 08/01/18 08/02/18 06:59 06:59 06:59 Intake Total 3251 4875 Balance 3251 4875 Result Diagrams: 07/31/18 04:49 07/31/18 04:49 <Quinton Pop C - Last Filed: 08/01/18 07:17> Phys Exam - Physical Examination HEENT: PERRLA Neck: no nodes, no JVD, full ROM Respiratory: clear to auscultation bilateral Cardiovascular: RRR Gastrointestinal: soft, non-tender, positive bowel sounds Musculoskeletal: no edema, pulses present Neurological: normal sensation, moves all 4 limbs Lymphatic: no nodes Psychiatric: normal affect, A&O x 3 Skin: no rash, normal turgor, cap refill <2 seconds <Emani Maloney - Last Filed: 07/31/18 17:39> Dx/Plan (1) TIA (transient ischemic attack) Code(s): G45.9 - TRANSIENT CEREBRAL ISCHEMIC ATTACK, UNSPECIFIED Status: Acute Plan: Neuro consult, rehab screening for placement (2) HTN (hypertension) Code(s): I10 - ESSENTIAL (PRIMARY) HYPERTENSION Status: Chronic Qualifiers: Hypertension type: essential hypertension Qualified Code(s): I10 - Essential (primary) hypertension Plan: continue medication and will monitor (3) CAD (coronary artery disease), [place] coronary artery Code(s): I25.10 - ATHSCL HEART DISEASE OF [place] CORONARY ARTERY W/O ANG PCTRS Status: Chronic Qualifiers: [place] vs. transplanted heart: [place] heart Associated angina: without angina Qualified Code(s): I25.10 - Atherosclerotic heart disease of [place] coronary artery without angina pectoris Plan: continue medications, continue to monitor (4) Dehydration Code(s): E86.0 - DEHYDRATION Status: Acute Plan: gentle hydration, recheck labs - Plan cont current plan of care, plan discussed w/ family * . <Emani Maloney - Last Filed: 07/31/18 17:39> - Plan -: patient care plan reviwed with CD REACTOR OPERATOR HEAD Obriant, agree. * . <Quinton Pop - Last Filed: 08/01/18 07:17>
[2018-07-31] MEDS: Heparin 5,000 UNITS/ML VIAL SC SCH (20:14)
[2018-07-31] MEDS: Rosuvastatin 20 MG TAB PO SCH (20:16)
--- NOTE | 2018-07-31 21:13 | CON ---
DATE OF CONSULTATION: 07/31/2018 REASON FOR CONSULTATION: Acute cerebrovascular accident. HISTORY OF PRESENT ILLNESS: Ms. Styles is a very pleasant 68-year-old white female who comes to [facility] for neurological symptoms. She was admitted here about 3 or 4 days ago for nausea and vom iting. She had an MRI that suggested a linear recent stroke on her cerebellum. She presented again on the with being unable to get up, right-sided weakness, blurry vision. She came in. She so fa r has been diagnosed with a new acute cerebellar stroke and Cardiology is being consulted as her trop onins are mildly elevated and has abnormal EKG. She denies any chest pain, tightness, or pressure. She does have a history of coronary artery disease with chronically occluded RCA that fills from robert aterals. During her ER visit, she had an episode of being unresponsive that lasted for about 40 seconds. Her pupils became pyknotic, she would not follow commands, she would just stare away, and then suddenly s he came back to herself. She was monitored at that time and had no major tachy-nicola arrhythmias. PAST MEDICAL HISTORY: 1. Hypertension. 2. Coronary artery disease as above with chronically occluded RCA. 3. Left cerebellar cerebrovascular accident. 4. Hyperlipidemia. 5. Anxiety and depression. PAST SURGICAL HISTORY: 1. Total hysterectomy. 2. Appendectomy. 3. Heart catheterization. ALLERGIES: No known drug allergies. OUTPATIENT MEDICATIONS: 1. Aspirin 81. 2. Reglan started on last admission. 3. Toprol-XL 12.5 mg a day. 4. Imdur 30 mg a day. 5. Vascepa 4 capsules, 2 in the morning and 2 in the evening. 5. Prozac 20 mg a day. 6. Crestor 40 mg q.p.m. SOCIAL HISTORY: Quit smoking 3 weeks ago. No alcohol or drug use. FAMILY HISTORY: Noncontributory. REVIEW OF SYSTEMS: Twelve-point review of systems was done and is all negative unless stated in the history of present illness. PHYSICAL EXAMINATION: VITAL SIGNS: Temperature 98.5, pulse 71, respiratory rate 18, saturating 97% on room air, blood pres sure 142/81. GENERAL: Awake, alert, oriented x3, in no distress. HEENT: Normocephalic, atraumatic. NECK: Supple. LUNGS: Clear. CARDIOVASCULAR: S1, S2. No S3 or S4. No murmurs, no rubs. ABDOMEN: Soft. Positive bowel sounds. EXTREMITIES: No edema. SKIN: Warm and dry. LABORATORY WORK: Reviewed. CBC with an elevated white count on admission of 12.8, down to 10; hemog lobin was 17, down to 14. Chemistries unremarkable except for a glucose of 123. Troponin was 0.03, 0.09, and 0.04. C-reactive protein was elevated at 0.5. Prolactin was elevated as well at 87. Aishwarya min B12 and folate were normal. LDL was 57, much better after increasing her Coreg. HDL was 34, tot al cholesterol 104, triglycerides 65. UA with 7-10 red cells with positive of 50,000-75,000 colony forming units. Brain MRI was reviewed. She has an acute small focus of left cerebellar hemisphere consistent with a recent infarction. No mass or midline shift. [place] of [place] with contrast CT shows no significant stenosis on the carotid systems. There is no central arterial occlusion. The distal right anterior cerebral artery is attenuated. ASSESSMENT: 1. Posterior circulation cerebrovascular accident. 2. Mildly elevated troponins, likely related to her acute cerebrovascular accident. 3. EKG shows classic changes of a DIRECTOR OF ADMISSIONS pattern to its negative T waves. Not concerning for ischemia. 4. Tobacco use. PLAN: 1. Agree with Plavix and aspirin. 2. Continue and statin dose. Her LDL is at goal at the time. 3. Agree with rehab placement. 4. Echocardiogram pending at the time. With posterior circulation stroke, unlikely this is cardioembolic. Thank you for letting us participate in the care of your patient. We will follow.
--- NOTE | 2018-07-31 23:19 | PRG ---
DATE OF SERVICE: 07/31/2018 CONSULTING PHYSICIAN: Hospitalist Service. Ms. Styles came back in with recurrent neurologic symptoms. She seemed to have some bilateral weak ness, headache, dizziness, memory difficulties, and some nausea. Her CTA did not reveal any acute st enosis. Her MRI of the brain did not reveal any acute ischemic changes. Her symptoms resolved spont aneously. Her exam is nonfocal at this point. I suspect that she may have had a basilar TIA. I would suggest adding Plavix 75 mg per day and continuing her aspirin. I can follow up with her as an outpatient.
[2018-08-01] MEDS: Sodium Chloride 0.9% 1,000 ML IV SCH ×2 (01:52→10:04)
[2018-08-01] MEDS: FLUoxetine HCl 20 MG CAP PO SCH (08:11)
[2018-08-01] MEDS: Meclizine HCl 25 MG TAB PO SCH ×2 (08:12→14:14)
[2018-08-01] MEDS: Famotidine 20 MG TAB PO SCH (08:12)
[2018-08-01] MEDS: Aspirin 325 mg Enteric Coated Tablet PO SCH (08:12)
[2018-08-01] MEDS: Heparin 5,000 UNITS/ML VIAL SC SCH (08:13)
[2018-08-01] MEDS ORDERED: Clopidogrel Bisulfate 75 MG TAB PO SCH (09:00)
[2018-08-01] MEDS: Acetaminophen 325 MG TAB PO PRN ×2 (09:03→13:13)
--- NOTE | 2018-08-01 12:31 | PDOC.CTH ---
Cardiology Progress Note - Subjective She is doing well. She is walking without much difficulty. No chest pain, tightness, pressure, SOB. - Objective Vital Signs Temp Pulse Pulse Pulse Resp BP BP 08/01/18 11:56 98.8 F 75 20 08/01/18 10:15 70 78 131/67 133/69 08/01/18 07:52 98.5 F 63 18 08/01/18 04:00 98.1 F 72 16 BP BP BP Pulse Ox 08/01/18 11:56 144/74 H 96 08/01/18 10:15 08/01/18 07:52 113/60 129/71 124/54 L 95 08/01/18 04:00 124/62 95 Admit Weight 143 lb Weight 145 lb 4.8 oz 07/31/18 08/01/18 08/02/18 06:59 06:59 06:59 Intake Total 3251 4875 1300 Balance 3251 4875 1300 - Physical Examination General/Neuro: alert & oriented x3, NAD Neck: no JVD present Lungs: CTA, unlabored respirations Heart: RRR Abdomen: NT/ND Extremities: other: (no edema) - Telemetry Telemetry Rhythm: NSR - Labs Result Diagrams: 07/31/18 04:49 07/31/18 04:49 Troponin/CKMB CK-MB (CK-2) 4.5 ng/mL (0-6.6) 07/30/18 11:31 Troponin I 0.046 ng/mL (< 0.028) H 07/30/18 18:09 - Assessment/Plan 1. Acute CVA 2. Elevated troponins, likely demand ischemia. 3. HTN, better controlled now. 4. CAD, occluded RCA fills from collaterals. PLAN: - Continue Plavix and statin - LDL at goal of less than 70. - May discharge to rehab any time from cardiac perspective. - Follow up in the office in 1 month.
[2018-08-01] MEDS ORDERED: cloNIDine 0.1 MG TAB PO PRN (14:05)
[2018-08-01] MEDS ORDERED: Metoprolol Tartrate 25 MG TAB PO SCH (15:30)
[2018-08-01 16:04] VITALS: TEMP 98.3
[2018-08-01 17:06] VITALS: BP 150/72
--- NOTE | 2018-08-02 01:03 | DIS ---
DATE OF ADMISSION: 07/30/2018 DATE OF DISCHARGE: 08/01/2018 DISCHARGE DIAGNOSES: 1. Cerebrovascular accident. 2. Basilar transient ischemic attack. 3. Dehydration, which is resolved. 4. Hypertension. 5. Hyperlipidemia. CONSULTATIONS: Dr. Sullivan and Dr. Orona. CODE STATUS: FULL. PROCEDURES: Had an echo. The patient had an ejection fraction visually estimated at 60%-65%; grade I/III diastolic dysfunction; mild concentric left ventricular hypertrophy; mildly dilated left atrium ; mild mitral regurgitation; aortic valve sclerosis, but opens well; mild tricuspid regurgitation. M RI of the brain: Small focus of restricted diffusion in the left cerebellar hemisphere consistent wi th a small and recent infarction, no mass effect or midline shift. The patient also had a CTA of the brain and neck, which were without acute findings, and a brain CT was performed on 07/30/2018 with n o acute intracranial hemorrhage or mass effect. REVIEW OF SYSTEMS: Negative, unless mentioned in the HPI. The patient was walking with assistance. Had mild central left-sided deficits. Skin: No rash and no itching. Constitutional: No weight lo ss or gain. She had mild hypertension, labile, which was controlled with medication. PHYSICAL EXAMINATION: VITAL SIGNS: Pulse was 66, blood pressure 150/72, respirations 18. HOSPITAL COURSE: This pleasant 68-year-old female was discharged from the hospital on 07/29/2018 aft er a several-day stay for a subacute left cerebellar linear infarct on the left. She returned to the ED on 07/30/2018 for bilateral weakness, headache, dizziness, and memory difficulties with some naus ea. She was re-admitted for a re-evaluation of stroke-like symptoms. She was feeling better by day of 07/31/2018, and Dr. Sullivan saw her and decided she may be having a basilar transient ischemic att ack and placed her on Plavix in addition to the aspirin. Her symptoms have abated. She was evaluate d on 08/01/2018 for possible rehab and was placed in inpatient rehab at that time. Her vitals have r emained stable. She has been ambulating with assistance. Dr. Orona has also seen this patient prio r to admission and agrees with discharge plan. She had a urine culture performed on 07/30/2018, [facility] showed some E. coli, which was likely a contaminant and not treated as she does not have dysuria. DISCHARGE MEDICATIONS: The patient was sent home on her home meds, which included Vascepa p.o. at bedtime; Crestor 40 mg p.o. at bedtime; Lopressor, which was changed from 12.5 daily to 12.5 b.i. d. She also has meclizine p.o. t.i.d. DISCHARGE CONDITION: Stable. DISPOSITION: Discharged to inpatient rehabilitation. FOLLOWUP: She will follow up with her PCP and Dr. Sullivan after discharge from inpatient [facility].
[2018-08-02 12:14] LABS: West Nile Virus IgG Ab - CSF Positive (Negative); West Nile Virus IgM Ab - CSF Negative (Negative)
== END 2018-08-01 18:38 ==
LOC: ERS 11:03 → 2SE 15:37
PROVIDERS: ADMIT Internal Medicine; ATTEND Internal Medicine
DX: I63.9 Cerebral infarction, unspecified (principal); G81.91 Hemiplegia, unspecified affecting right dominant side; H53.8 Other visual disturbances; G45.9 Transient cerebral ischemic attack, unspecified; E86.0 Dehydration; I12.9 Hypertensive chronic kidney disease with stage 1 through stage 4 chronic kidney disease, or unspecified chronic kidney disease; N18.3 Chronic kidney disease, stage 3 (moderate); R55 Syncope and collapse; I25.10 Atherosclerotic heart disease of native coronary artery without angina pectoris; I25.2 Old myocardial infarction; E78.5 Hyperlipidemia, unspecified; F41.8 Other specified anxiety disorders; Z87.891 Personal history of nicotine dependence; Z79.82 Long term (current) use of aspirin; Z79.899 Other long term (current) drug therapy
CPT/HCPCS: 62270; 70450; 70496; 70498; 70551; 80048; 80053; 80061; 82140; 82550; 82553; 82607; 82746; 82945; 82962; 83690; 84146; 84157; 84484 ×2; 85025 ×2; 85652; 86140; 86788; 86789; 87070; 87077; 87086; 87186; 87205; 89051; 93005; 93306; 96361 ×4; 96374; 96375; 97116 ×2; 97139 ×4; 99285; G0378 ×3; G8978; G8979; G8987; G8988; G8989; 36415; 36416; 81003; 81015; J1644; J2405; J2930; Q0162

== ENCOUNTER 2018-10-10 08:17 | Day surgery (SDC) | payer MEDICARE, BC ==
[2018-10-09 12:00] VITALS: BMI 26.5
[2018-10-10] MEDS ORDERED: Sodium Chloride 0.9% 10 ML ONE (08:29)
[2018-10-10] MEDS ORDERED: Lidocaine 1% w/Epinephrine 1:100K 30 ML VIAL ONE (08:42)
== END 2018-10-10 10:35 | disposition home or self-care (01) ==
LOC: CCL 08:17
PROVIDERS: ATTEND Internal Medicine Cardiovascular Disease
DX: I63.9 Cerebral infarction, unspecified (principal); I25.10 Atherosclerotic heart disease of native coronary artery without angina pectoris; E78.5 Hyperlipidemia, unspecified; I65.23 Occlusion and stenosis of bilateral carotid arteries; Z79.82 Long term (current) use of aspirin; Z79.899 Other long term (current) drug therapy
CPT/HCPCS: 33282; C1764; J2001

== ENCOUNTER 2019-06-18 19:42 | Observation (INO) | payer MEDICARE, BC ==
[2019-06-18] MEDS ORDERED: Ondansetron ODT 4 MG TAB ONE ×2 (20:12→23:12)
[2019-06-18] MEDS ORDERED: Acetaminophen 500 MG TAB ONE (20:48)
[2019-06-18] MEDS ORDERED: diphenhydrAMINE 50 MG/ML VIAL ONE (20:48)
[2019-06-18] MEDS ORDERED: Metoclopramide HCl 10 MG/2 ML VIAL ONE (20:48)
--- NOTE | 2019-06-18 21:06 | CT ---
CT Brain WO Con History: Headache Comparison: CT brain June 11, 2019 Findings: No acute hemorrhage or infarct. No midline shift or mass effect. Ventricular size and extra -axial CSF spaces are normal. Old lacunar infarcts. Calvarium is intact. Paranasal sinuses and mastoids are clear. Impression: No acute intracranial abnormality.
--- NOTE | 2019-06-18 21:09 | RAD ---
XR Chest 1 View Portable History: Nausea and vomiting Comparison: Radiograph June 11, 2019 Findings: Lungs are without focal confluent airspace consolidation, pneumothorax, or effusion. Cardia c silhouette and mediastinal contours are similar. No acute osseous abnormality. Impression: No acute intrathoracic abnormality.
[2019-06-18 21:53] LABS: #Basophils 0.1 thou/uL (0.0-0.2); #Monocytes 0.6 thou/uL (0.11-0.59); #Neutrophils 10.5 thou/uL (1.40-6.50); %Basophils 0.6 % (0.0-1.0); %Eosinophils 0.1 % (0.0-10.0); %Monocytes 4.3 % (0.0-10.0); Hemoglobin 16.6 g/dL (12.0-16.0); Mean Corpuscular HGB CONC 33.5 g/dL (32.0-36.0); Mean Corpuscular Hemoglobin 32.2 pg (27.0-31.0); Platelet Count 345 thou/uL (130-400); Red Blood Cell (RBC) Count 5.15 mill/uL (4.20-5.40); White Blood Cell (WBC) Count 14.2 thou/uL (4.8-10.8)
[2019-06-18 21:54] LABS: Bilirubin Negative (Negative); Blood, Urine 1+ (Negative); Clarity Clear (Clear); Glucose, Urine (Dipstick) Normal (Negative); Leukocyte Negative Leu/uL (Negative); Mucous/LPF Rare LPF (<2+); Nitrite Negative (Negative); Protein, Urine (Dipstick) Negative (Neg-Trace); Squamous Epithelial 0-3 HPF (0-3); Urobilinogen Normal mg/dL (Less than 2)
[2019-06-18] MEDS ORDERED: Labetalol HCl 100 MG/20 ML VIAL ONE (21:56)
[2019-06-18 22:03] LABS: Bacteria/HPF Rare-Few HPF (None Seen)
[2019-06-18 22:13] LABS: ALT (SGPT) 25 U/L (8-55); AST (SGOT) 19 U/L (5-34); Albumin 4.6 g/dL (3.4-4.8); Alkaline Phosphatase 62 U/L (40-150); Anion Gap 18 mmol/L (10-20); BUN (Urea Nitrogen) 16 mg/dL (9.8-20.1); Bilirubin, Total 0.5 mg/dL (0.2-1.2); Calc. Creatinine Clearance 0 mL/min (70-130); Calcium 9.7 mg/dL (7.8-10.44); Carbon Dioxide 19 mmol/L (23-31); Chloride 103 mmol/L (98-107); Estimated GFR-MDRD 72; Globulin 2.8 g/dL (2.4-3.5); Glucose 113 mg/dL (80-115); Lipase 19 U/L (8-78); Potassium 3.9 mmol/L (3.5-5.1); Protein, Total 7.4 g/dL (6.0-8.3); Sodium 136 mmol/L (136-145)
[2019-06-19 02:23] LABS: CKMB 1.3 ng/mL (0-6.6)
[2019-06-19 05:38] LABS: CKMB 1.5 ng/mL (0-6.6)
[2019-06-19 07:18] VITALS: BMI 26.1
[2019-06-19] MEDS ORDERED: Ondansetron PF 4 MG/2 ML Vial IVP PRN (08:33)
[2019-06-19] MEDS ORDERED: Ondansetron ODT 4 MG TAB PO PRN (08:33)
[2019-06-19] MEDS ORDERED: Non-Formulary Item 1 EACH (Fluoxetine Hcl [Fluoxetine Hcl] 20 MG) PO SCH (09:00)
[2019-06-19] MEDS ORDERED: Isosorbide Mononitrate (ER) 30 MG TAB PO SCH ×2 (09:00→12:00)
[2019-06-19] MEDS ORDERED: FLUoxetine HCl 20 MG CAP PO SCH ×2 (09:00→12:00)
[2019-06-19] MEDS ORDERED: Clopidogrel Bisulfate 75 MG TAB PO SCH ×2 (09:00→12:00)
[2019-06-19 09:23] LABS: Lactic Acid 1.5 mmol/L (0.5-2.2)
[2019-06-19] MEDS ORDERED: Iopamidol 370 76% 100 ML VIAL ONE (09:36)
--- NOTE | 2019-06-19 10:05 | CT ---
CT ANGIOGRAM HEAD: CT ANGIOGRAM NECK: TECHNIQUE: CT angiogram of the head and neck are performed in the axial plane. Three-dimensional reformatted im ages are submitted for interpretation. HISTORY: CVA versus TIA. COMPARISON: 07/30/2018 FINDINGS: Non-contrast head CT: No hemorrhage. No extraaxial hematoma. No midline shift. Basilar cisterns are patent. Calvarium is intact. Adequate aeration of the sinuses and mastoid air cells. Post-contrast head CT: No pathologic enhancement of the brain parenchyma. Visualized soft tissue neck structures and orbits are unremarkable. Visualized parotid and submandibular glands are unremarkable. Sternocleidomastoid muscles are unremarkable. Scattered nonspecific, nonenlarged soft tissue neck lymph nodes. Varying degrees of central canal stenosis and foraminal narrowing on the basis of degenerative change . Upper mediastinum and lung apices are unremarkable. Chronic changes are noted. CT ANGIOGRAM: There is atherosclerosis of the aortic arch. Right carotid: The right carotid artery origin, common carotid artery, and internal carotid artery h ave appropriate enhancement and luminal diameter. Mild stenosis of the proximal right internal carotid artery, based upon NASCET criteria. Left carotid: The left carotid artery origin and common carotid artery have appropriate enhancement and luminal diameter. There is short segment mild (47%) stenosis of the left carotid bifurcation. The left internal carotid artery is patent. The cervical vertebral arteries are patent throughout th eir course in the neck. The visualized subclavian arteries are unremarkable. CT angiogram of the head: Intracranial internal carotid arteries have appropriate enhancement and nargis cam diameter. There is atherosclerosis involving both cavernous segments. Anterior circulation: Symmetric enhancement of the A1 and M1 segments. Proximal A2 segments and pro ximal MCA branches are unremarkable. Posterior circulation: Limited evaluation of PICA origins. Both vertebral arteries supply a normal appearing basilar artery. Appropriate enhancement and luminal diameter. There is stable dilatation of the terminus of the vertebral artery. Bilateral PICA origins have appropriate enhancem ent and luminal diameter. IMPRESSION: Short segment moderate stenosis of the left carotid bifurcation, based upon NASCET criteria. Transcribed Date/Time: 06/19/2019 10:20 AM
--- NOTE | 2019-06-19 10:10 | HP ---
CHIEF COMPLAINT: Headache with vomiting. HISTORY OF PRESENT ILLNESS: Ms. Styles is a 69-year-old woman presenting to the emergency department due to severely elevated blood pressures associated with headache and vomiting. She states her blood pressure has been labile for the last 2 to 3 weeks, ranging anywhere from 130 systolic up to 200s systolic. She was recently seen by her wall insulation sprayer, Dr. Orona on June 06, and states at that time, her blood pressure was in the 130 systolic. Therefore, decision was made to not make any changes to her blood pressure. Since then, she has had persistently elevated blood pressures, which she has been managing with p.r.n. hydralazine. Her daughter who is a supervisor sheet manufacturing has been keeping thorough logs of her blood pressure. Yesterday during the earlier part of the day, her blood pressure had been the best that had been in quite sometime. In the afternoon; however, she started with sudden onset nausea, headache, followed by one episode of projectile vomiting. Her blood pressure was checked at 5 p.m. and elevated at 182/99. She took hydralazine and an aspirin. When checked 30 minutes later, the blood pressure remained elevated at 189/116. She then vomited two more times and a blood pressure at 5 p.m. was elevated at 179/105. In the emergency department, her blood pressure got as high as 220/110, and her heart rate has remained in the 70s. In the emergency department, she was first treated for the headache to assess if the blood pressure was being driven up by migraine. She was given Reglan and Zofran as well as Tylenol 100 mg and diphenhydramine. The blood pressure remained elevated, therefore she was then treated with labetalol 20 mg, which did improve her blood pressure to 173/93. The patient reports having what is described by her daughter as a presyncopal episode on Monday. She was walking to the toilet and states she suddenly went limp and noted her pupils were constricted and she had a blank stare. It lasted seconds, and there was no loss of consciousness; however, the patient was unresponsive for those few seconds. She then recovered and had no recollection of nearly falling. She did not seek medical attention at that time. The patient has a history of CVA/TIAs and a "silent OH." Her most recent visit was on 06/13/2019, at which time she presented with generalized weakness and underwent an MRI of the brain that showed finding suggestive of small vessel disease with no MRI evidence for acute infarction. When compared to prior study of July 2018 , there was a new area of increased T2 signal within the subcortical white matter of the posteromedial left parietal lobe with possible associated linear area of blooming artifact. This was said to be possibly related to prior hemorrhage or calcification. A short-term followup MRI was recommended in 3 to 6 months. At that time, she also underwent an echo that showed an EF of 60% to 65% with grade 1/3 diastolic dysfunction, mild concentric left ventricular hypertrophy, mildly dilated left atrium, mild mitral regurgitation, mild tricuspid regurgitation as well as mild pulmonic regurgitation. The patient was cleared for discharge home with advice to follow up with Dr. Orona as an outpatient and her primary care physician. Of note, she does have a neurologist she sees in the [place]. Daughter states she has had in the last 2 to 3 weeks, episodes of confusion, also episodes of bilateral hand numbness or tingling. Has had issues with staggering gait and lightheadedness. All of which she has recovered from, and she has concern she maybe experiencing TIAs. At present, with this most recent episode, she has not had any neurological symptoms/deficits. REVIEW OF SYSTEMS: At this present time, the patient states she did not experience any slurred speech or confusion. No extremity numbness or tingling. No gait disturbances or weakness. Her headache has resolved, and she is back to her baseline. Her daughter states she has had mild temperatures. No urinary symptoms. No upper respiratory symptoms. She reports having mild discomfort to her abdomen from the excessive retching, but otherwise denies having any pain. No neck stiffness. Denies having any loose stools. All other review of systems are negative. PAST MEDICAL HISTORY: 1. History of stroke in August 2018. 2. Hypertension. 3. High cholesterol. 4. Coronary artery disease. 5. Hypertension. PAST SURGICAL HISTORY: 1. Total hysterectomy. 2. Appendectomy. 3. Heart monitor placed in 2018. 4. Kidney stone removal. SOCIAL HISTORY: The patient states she is a former tobacco user, who recently started smoking again and has once again quit since three weeks ago. Denies any alcohol consumption or illicit drug use. ALLERGIES: NO KNOWN DRUG ALLERGIES. CURRENT MEDICATIONS: 1. Crestor. 2. Metoprolol succinate. 3. Isosorbide mononitrate. 4. Clopidogrel. 5. Vascepa. 6. Celexa. 7. Aspirin. 8. Hydralazine. 9. Reglan. PHYSICAL EXAMINATION: GENERAL: The patient appears well developed, well nourished, and is in no acute distress. VITAL SIGNS: Temperature 98.2, pulse 90, respirations 18, O2 saturation 94% on room air. HEENT: Normocephalic and atraumatic. Pupils are equal, round, and reactive to light. Extraocular movements intact. Sclerae are anicteric. Oropharynx is clear. NECK: Supple. No stiffness or tenderness. Full range of motion. No lymphadenopathy. LUNGS: Clear to auscultation bilaterally without any wheezes, rales, or rhonchi. CARDIAC: Regular rate and rhythm. ABDOMEN: Soft, nontender, nondistended. Normoactive bowel sounds present. No guarding or rigidity. No CVA tenderness. EXTREMITIES: No lower leg swelling or edema. NEUROLOGIC: Alert and oriented x3. Speech normal. Facial movements are normal. No facial or extremity weakness/numbness. LABORATORY DATA: White blood count 14.2, hemoglobin 16.6, hematocrit 49.4. Sodium 136, potassium 3.9, anion gap 18, BUN 16, creatinine 0.79, GFR 72, calcium 9.7, total bilirubin 0.5, AST 19, ALT 25, alkaline phosphatase 62. Troponin negative 0.039, 0.035. Serum protein 7.4, albumin 4.6, lipase 19, TSH 2.1967. Urinalysis notable for 25 ketones, 1+ blood, 4 to 6 red blood cells, 4 to 6 white blood cells, and rare amorphous crystals. Rare to few urine bacteria and rare mucus. IMAGING STUDIES: 1. Chest x-ray showed no acute intrathoracic abnormalities. 2. CT of the brain also showed no acute intracranial abnormalities. IMPRESSION AND PLAN: Ms. Styles is a very pleasant 69-year-old woman, who has been struggling with labile hypertension associated with nausea, vomiting, and headaches, who has been referred for management of the followin. Hypertensive urgency. Currently, her blood pressure is controlled at 113/69. The patient is back to baseline. We will resume her home medications and monitor her blood pressure. A consultation has been placed to Dr. Orona, who plans to see her this afternoon. Daughter was concerned due to previous history of adrenal incidentaloma. Therefore, I have added a 24-hour urine catecholamine test. Also added serum cortisol. Given the vague symptoms she has been experienced with concerns for TIAs, we will go ahead and add on a CT angiogram of the head and neck. No indication to repeat an MRI that has been less than a month from her last. No neurological symptoms at present. 2. Leukocytosis, could potentially be reactive. However, family reports low- grade temperatures. We will add urine culture and will also add lactic acid as well as procalcitonin to her labs done this morning. 3. Nausea, vomiting. This has resolved. Potentially likely secondary to headache and elevated blood pressure. We will treat with Zofran p.r.n. No indication that she has any underlying gastroenteritis. We will continue to monitor. 4. Presyncope. Orthostatic BPs, gentle hydration. 5. Gastrointestinal prophylaxis. 6. Deep venous thrombosis prophylaxis with mechanical SCDs. 7. Code status full. The patient is interested in speaking to someone in obtaining information on advance directives. Therefore, we will place a consultation with Palliative Care. Surrogate decision maker is her daughter Dr. Phyllis Styles ([employer]ional Tanker Truck Driver). The patient's case will be discussed with attending for further recommendations. Job ID: [id number] [id number]
[2019-06-19] MEDS: Sodium Chloride 0.9% 1,000 ML IV SCH (10:59)
[2019-06-19] MEDS: Aspirin 81 mg Enteric Coated Tablet PO SCH (11:06)
[2019-06-19] MEDS: Famotidine/PF 20 mg/2ml Vial SLOW IVP SCH ×2 (11:07→21:27)
[2019-06-19 14:51] LABS: Albumin (w/Testosterone Panel) 3.9 g/dL
--- NOTE | 2019-06-19 15:15 | CON ---
DATE OF CONSULTATION: 06/19/2019 REASON FOR CONSULTATION: Hypertensive emergency. PRIMARY BACKER UP: Adeel Orona MD HISTORY OF PRESENT ILLNESS: Ms. Styles is a very pleasant 69-year-old white female, who comes to the hospital for nausea, vomiting, and headache. She was at home, started having a headache, checked her blood pressures in 170s/100s, took a p.r.n. hydralazine that she has been using to try to control these bursts of high blood pressures, and she did not see any improvement, so eventually started having nausea and vomiting, decided to come into the ER as this is the same way she had when she had her stroke. She was found to have blood pressures in 210s/120s, so she was given some IV labetalol. Blood pressure was much better, and symptoms were controlled. She was also given Reglan and Protonix. She is doing much better now. Her blood pressure is actually on the low side in the 80s/50s. No more headaches. No more nausea or vomiting. PAST MEDICAL HISTORY: 1. Coronary artery disease with an occluded RCA that fills from [id number] collaterals. 2. CVA in August,. 3. Hypertension. 4. Hyperlipidemia. 5. Very labile blood pressure recently. 6. An 8-mm adrenal adenoma found on the CT abdomen back in June,. PAST SURGICAL HISTORY: 1. Total hysterectomy. 2. Appendectomy. 3. LINQ implantable loop recorder placed at the time of her CVA. 4. Renal stone removal. SOCIAL HISTORY: Former tobacco user, but quit about a month ago. No alcohol or drug use. FAMILY HISTORY: Noncontributory. ALLERGIES: NO KNOWN DRUG ALLERGIES. OUTPATIENT MEDICATIONS: 1. Aspirin 325 a day. 2. Vascepa. 3. Plavix 75 mg a day. 4. Imdur 30 mg a day. 5. Fluoxetine 20 mg a day. 6. Metoprolol succinate 25 mg a day. 7. Crestor. 8. Hydralazine p.r.n. 9. Metoclopramide 10 mg t.i.d. REVIEW OF SYSTEMS: A 12-point review of systems was done and was all negative unless stated in the history of present illness. PHYSICAL EXAMINATION: VITAL SIGNS: Temperature 98.2, pulse 87, respiratory rate 16, saturations 97% on room air, blood pressure currently at 89/56. GENERAL: Awake, alert, and oriented x3, in no distress. HEENT: Normocephalic and atraumatic. NECK: Supple. LUNGS: Clear. CARDIOVASCULAR: S1 and S2. No S3 or S4. No murmurs. No rubs. ABDOMEN: Soft. Positive bowel sounds. EXTREMITIES: No edema. SKIN: Warm and dry. LABORATORY DATA: Laboratory work was reviewed. Troponin is in the indeterminate range. White count was 14, hemoglobin of 16, platelet count of 345. Metabolic profile was unremarkable. Troponin was negative x1 and then 3 in the indeterminate range. TSH was normal. Cortisol was normal. Lactic acid and magnesium were both normal. UA with 1+ blood, 20 ketones, 4 to 6 white cells, 4 to 6 red cells, no bacteria, no nitrites. ASSESSMENT: 1. Hypertensive emergency. 2. Labile hypertension. 3. Adrenal nodule. PLAN: 1. Agree with workup for the adrenal nodule for possible pheochromocytoma versus other hormonal imbalances. 2. We will plan on switching her p.r.n. hydralazine to p.r.n. clonidine at 0.1 mg as needed for systolic blood pressure above 170 over diastolic blood pressure above 110. 3. Continue home regimen for now. 4. Wait for blood pressure to come back up before restarting any medications from home. Thank you for letting us to participate in the care of your patient. We will follow. Job ID: [id number]
[2019-06-19 15:17] LABS: Sex Hormone Binding Globulin 20.7 nmol/L (26-188); Testosterone, Free 3.9 pg/mL (50-110); Testosterone, Total 16.4 ng/dL (12-36)
[2019-06-19] MEDS ORDERED: ICOSAPENT ETHYL PO SCH ×3 (21:00)
[2019-06-19] MEDS ORDERED: Rosuvastatin 20 MG TAB PO SCH (21:00)
[2019-06-19] MEDS ORDERED: Non-Formulary Item 1 EACH (Rosuvastatin Calcium [Rosuvastatin Calcium] 40 MG) PO SCH (21:00)
[2019-06-20] MEDS: Sodium Chloride 0.9% 1,000 ML IV SCH ×2 (01:47→17:28)
[2019-06-20 04:51] LABS: #Basophils 0.1 thou/uL (0.0-0.2); #Eosinphils 0.2 thou/uL (0.0-0.7); #Lymphocytes 3.1 thou/uL (1.20-3.40); #Monocytes 0.6 thou/uL (0.11-0.59); #Neutrophils 4.2 thou/uL (1.40-6.50); %Eosinophils 2.2 % (0.0-10.0); %Lymphocytes 38.3 % (21.0-51.0); %Monocytes 7.4 % (0.0-10.0); %Neutrophils 51.1 % (42.0-75.0); Hemoglobin 13.8 g/dL (12.0-16.0); Mean Corpuscular HGB CONC 34.5 g/dL (32.0-36.0); Mean Corpuscular Hemoglobin 33.5 pg (27.0-31.0); Mean Corpuscular Volume 97.2 fL (78.0-98.0); Mean Platelet Volume 7.9 fL (7.4-10.4); Platelet Count 244 thou/uL (130-400); RBC Distribution Width 12.3 % (11.5-14.5); White Blood Cell (WBC) Count 8.1 thou/uL (4.8-10.8)
[2019-06-20 05:07] LABS: Anion Gap 11 mmol/L (10-20); BUN (Urea Nitrogen) 9 mg/dL (9.8-20.1); Calc. Creatinine Clearance 84 mL/min (70-130); Calcium 8.6 mg/dL (7.8-10.44); Carbon Dioxide 20 mmol/L (23-31); Chloride 112 mmol/L (98-107); Estimated GFR-MDRD 86; Glucose 86 mg/dL (80-115); Sodium 139 mmol/L (136-145)
[2019-06-20] MEDS: Isosorbide Mononitrate (ER) 30 MG TAB PO SCH (08:59)
[2019-06-20] MEDS: Famotidine/PF 20 mg/2ml Vial SLOW IVP SCH ×2 (09:00→20:30)
[2019-06-20] MEDS: Aspirin 81 mg Enteric Coated Tablet PO SCH (09:00)
[2019-06-20] MEDS: Clopidogrel Bisulfate 75 MG TAB PO SCH (09:02)
[2019-06-20] MEDS: FLUoxetine HCl 20 MG CAP PO SCH (09:03)
--- NOTE | 2019-06-20 12:08 | PDOC.CPN ---
- Subjective Date: 06/20/19 Time: 12:06 - Review of Systems General: denies: fever/chills, weight/appetite/sleep changes, night sweats, fatigue Respiratory: denies: cough, congestion, shortness of breath, exercise intolerance Cardiovascular: denies: chest pain, palpitation, edema, paroxysmal nocturnal dyspnea, orthopnea Gastrointestinal: denies: nausea, vomiting, diarrhea, constipation, abd pain, GI bleeding Musculoskeletal: denies: pain, tenderness, stiffness, swelling, arthritis/ arthralgias Neurological: denies: numbness, syncope, seizure, weakness - Objective Allergies/Adverse Reactions: Allergies Allergy/AdvReac Type Severity Reaction Status Date / Time No Known Allergies Allergy Verified 10/09/18 12:00 Visit Medications: Current Medications Aspirin (Ecotrin) 81 mg PO DAILY [facility] Last Admin: 06/20/19 09:00 Dose: 81 mg Famotidine (Pepcid) 20 mg SLOW IVP Q12HR [facility] Last Admin: 06/20/19 09:00 Dose: 20 mg Sodium Chloride (Normal Saline 0.9%) 1,000 mls @ 65 mls/hr IV .[id number] [facility] Last Admin: 06/20/19 01:47 Dose: 1,000 mls Ondansetron HCl (Zofran Odt) 4 mg PO Q6H PRN PRN Reason: Nausea/Vomiting Ondansetron HCl (Zofran) 4 mg IVP Q6H PRN PRN Reason: Nausea/Vomiting Icosapent Ethyl [ (Vascepa] 4 Capsule) 0 each PO HS [facility] Clopidogrel (Bisulfate 75 Mg Tab) 0 each PO DAILY [facility] Last Admin: 06/20/19 09:02 Dose: 1 each Metoprolol Succinate (Xl 25 Mg Tab) 0 each PO DAILY [facility] Last Admin: 06/20/19 09:00 Dose: Not Given Fluoxetine Hcl 20 Mg (Cap) 0 each PO DAILY [facility] Last Admin: 06/20/19 09:03 Dose: 1 each Rosuvastatin 40 Mg (Tab) 0 each PO HS [facility] Last Admin: 06/19/19 21:26 Dose: 1 each Isosorbide Mononitrate (Er) 30 Mg Tab 0 each PO DAILY [facility] Last Admin: 06/20/19 08:59 Dose: Not Given Sodium Chloride (Flush - Normal Saline) 10 ml IVF Q12HR [facility] Last Admin: 06/20/19 09:00 Dose: Not Given Sodium Chloride (Flush - Normal Saline) 10 ml IVF PRN PRN PRN Reason: Saline Flush Vital Signs & Weight: Vital Signs Temp Pulse Resp BP BP BP BP 06/20/19 08:54 98.2 F 78 18 109/55 L 96/57 L 121/59 L 06/20/19 03:59 98.3 F 69 18 97/54 L Pulse Ox 06/20/19 08:54 99 06/20/19 03:59 95 Weight 147 lb 8 oz - Physical Exam General: alert & oriented x3, appears well, no apparent distress HEENT: mucus membranes moist Neck: supple neck Cardiac: regular rate and rhythm, no murmur Lungs: clear to auscultation Abdomen: active bowel sounds, soft, non-tender Skin: clear Musculoskeletal: normal range of motion - Labs Result Diagrams: 06/20/19 03:49 06/20/19 03:49 Troponin/CKMB CK-MB (CK-2) 1.5 ng/mL (0-6.6) 06/19/19 04:32 Troponin I 0.035 ng/mL (< 0.028) H 06/19/19 04:32 - Telemetry Sinus rhythms and dysrhythmias: sinus rhythm - Assessment/Plan Assessment/Plan: 1. Hypertensive emergency. 2. Hx of CVA 3. Adrenal nodule PLAN: - Will change PRN hydralazine to PRN clonidine. - Continue home meds at current doses. - Pending work up for pheo and her adrenal adenoma.
[2019-06-20] MEDS: Acetaminophen 325 MG TAB PO PRN ×2 (12:55→20:30)
--- NOTE | 2019-06-20 20:56 | PDOC.HOSPP ---
- Subjective Subjective: Feeling better in general. Had mild headache this morning, but better with Tylenol. - Objective Vital Signs & Weight: Vital Signs (12 hours) Temp Pulse Resp BP BP Pulse Ox 06/20/19 20:00 98.0 F 77 16 130/80 96 06/20/19 16:00 97.9 F 67 20 134/64 99 06/20/19 11:15 99 F 79 16 110/57 L 96 Weight Weight 147 lb 8 oz I&O: 06/19/19 06/20/19 06/21/19 06:59 06:59 06:59 Intake Total 2393 1615 Output Total 1999 1299 Balance 393 315 Result Diagrams: 06/20/19 03:49 06/20/19 03:49 Hospitalist ROS - Medication Medications: Active Medications Generic Name Dose Route Start Last Admin Trade Name Freq PRN Reason Stop Dose Admin Acetaminophen 650 mg 06/20/19 12:43 06/20/19 20:30 Tylenol PO 650 mg Q6H PRN Administration Headache/Fever or Pain Aspirin 81 mg 06/19/19 09:00 06/20/19 09:00 Ecotrin PO 81 mg DAILY [facility] Administration Famotidine 20 mg 06/19/19 09:00 06/20/19 20:30 Pepcid SLOW IVP 20 mg Q12HR [facility] Administration Sodium Chloride 1,000 mls @ 65 mls/hr 06/19/19 08:45 06/20/19 17:28 Normal Saline 0.9% IV 1,000 mls .[id number] [facility] Administration Clopidogrel 0 each 06/20/19 09:00 06/20/19 09:02 Bisulfate 75 Mg Tab PO 1 each DAILY [facility] Administration Metoprolol Succinate 0 each 06/20/19 09:00 06/20/19 09:00 Xl 25 Mg Tab PO Not Given DAILY [facility] Fluoxetine Hcl 20 Mg 0 each 06/20/19 09:00 06/20/19 09:03 Cap PO 1 each DAILY [facility] Administration Rosuvastatin 40 Mg 0 each 06/19/19 21:00 06/20/19 20:30 Tab PO 1 each HS [facility] Administration Isosorbide 0 each 06/20/19 09:00 06/20/19 08:59 Mononitrate (Er) 30 PO Not Given Mg Tab DAILY [facility] Sodium Chloride 10 ml 06/19/19 09:00 06/20/19 20:31 Flush - Normal Saline IVF Not Given Q12HR [facility] - Exam General Appearance: NAD Heart: RRR, no murmur, no gallops, no rubs, normal peripheral pulses Respiratory: CTAB, no wheezes, no rales, no ronchi, normal chest expansion, no tachypnea, normal percussion Gastrointestinal: soft, non-tender, non-distended, normal bowel sounds, no palpable masses, no hepatomegaly, no splenomegaly, no bruit Skin: normal turgor, no lesions, no rashes Neurological: CN's grossly intact, normal sensation to touch, no weakness, no focal deficits, no new deficit Musculoskeletal: normal tone, normal strength, no muscle wasting Psychiatric: normal affect, normal behavior, A&O x 3 Hosp A/P (1) CAD (coronary artery disease), [place] coronary artery Code(s): I25.10 - ATHSCL HEART DISEASE OF [place] CORONARY ARTERY W/O ANG PCTRS Status: Chronic Qualifiers: [place] vs. transplanted heart: [place] heart Associated angina: without angina Qualified Code(s): I25.10 - Atherosclerotic heart disease of [place] coronary artery without angina pectoris (2) HTN (hypertension) Code(s): I10 - ESSENTIAL (PRIMARY) HYPERTENSION Status: Chronic Qualifiers: Hypertension type: essential hypertension Qualified Code(s): I10 - Essential (primary) hypertension (3) Intractable nausea and vomiting Code(s): R11.2 - NAUSEA WITH VOMITING, UNSPECIFIED Status: Resolved Qualifiers: Vomiting type: unspecified Qualified Code(s): R11.2 - Nausea with vomiting , unspecified - Plan So far the labs have indicated no abnormal activity from the adrenal nodule. Urine metanephrines are pending. BP is a little low today. She is feeling much better. N/V seems to be related to the elevated BP. Drastic variablity in the BP. Gets high enough to be symptomatic. If BP stabilizes, she can DC. Otherwise awaiting metanephrine studies.
[2019-06-21 08:36] VITALS: TEMP 98.3
[2019-06-21] MEDS: Sodium Chloride 0.9% 1,000 ML IV SCH (09:25)
[2019-06-21] MEDS: Aspirin 81 mg Enteric Coated Tablet PO SCH (09:26)
[2019-06-21] MEDS: Famotidine/PF 20 mg/2ml Vial SLOW IVP SCH (09:26)
[2019-06-21] MEDS: Clopidogrel Bisulfate 75 MG TAB PO SCH (09:27)
[2019-06-21] MEDS: FLUoxetine HCl 20 MG CAP PO SCH (09:27)
[2019-06-21] MEDS: Isosorbide Mononitrate (ER) 30 MG TAB PO SCH (09:28)
[2019-06-21 09:58] VITALS: BP 148/76
--- NOTE | 2019-06-23 04:31 | DIS ---
DATE OF ADMISSION: 06/19/2019 DATE OF DISCHARGE: 06/21/2019 DISCHARGE DIAGNOSES: 1. Hypertensive urgency. 2. Coronary artery disease. 3. Intractable nausea and vomiting. 4. History of cerebrovascular accident. 5. Adrenal nodule. HISTORY OF PRESENT ILLNESS: This patient is a 69-year-old female who was admitted to [facility] on 06/11 with some generalized weakness, for observation stay and was seen in consultation by Neurology, who felt she did not have a significant neurological illness at that time. She was admitted again in the emergency department on the for hypertension related issues, some generalized weakness, and some ill-defined symptoms. At that time, she was treated symptomatically and released. The patient's subsequently returned again for this admission with very elevated blood pressure, headache, and vomiting. She had been managing her blood pressure with p.r.n. hydralazine. The patient was treated in the emergency department for potential migraine related symptoms and blood pressure. Apparently, there was some history of constellation of other symptoms including some weakness episodes, possibly some episodes of confusion, lightheadedness, and tingling in her hands. The patient's initial workup revealed a fairly normal physical exam, white count of 14, hemoglobin 16. Troponins negative. TSH was normal. LFTs normal. She was placed on observation for hypertensive urgency. The patient subsequently had a CT of the brain, which was unremarkable. She had a chest x-ray which was unremarkable. She had a CT angiogram of the head. She had a short segment of only moderate stenosis of the carotid bifurcation. She was seen in consultation by Dr. Orona, plan to switch the hydralazine to clonidine as needed for systolic blood pressure management. It was noted the patient had an adrenal nodule on prior imaging, and therefore given her constellation of symptoms and variation in her blood pressure, it was felt that a workup for possible pheochromocytoma or functional nodule was indicated. Subsequently, labs were obtained. Her subsequent white count came down to 8.1, hemoglobin was 13.8. TSH was 2.19. Testosterone was 16.4, free testosterone 3.9, sex hormone binding globulin slightly low at 20.7, DHEA was 240.1. Cortisol was 8.1, and a repeat of 4.3, ACTH was borderline low at 6.9 Urine metanephrines were sent. However, the patient's vital signs had normalized substantially, although she was maintained off blood pressure medications and she did have resumption of relatively low blood pressures. Once her hypertensive urgency had resolved, pressures were as low as the upper 80s. However, the patient felt completely asymptomatic and within 24 hours the numbers were back up to 140s to 150s systolic. 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 PHYSICAL EXAMINATION: On the day of discharge, VITAL SIGNS: Temperature was 98.3, pulse 69, BP 148/76, respirations 20, O2 saturation 98% on room air. GENERAL: She was awake and alert. HEART: Regular rate and rhythm with no murmurs. LUNGS: Clear to auscultation bilaterally. ABDOMEN: Soft, nontender, and nondistended. Positive bowel sounds. EXTREMITIES: No cyanosis, clubbing, or edema. DISPOSITION: The patient is discharged to home in stable condition. Activity is as tolerated. She should remain on a heart healthy diet. She will have clonidine 0.1 mg q.4 hours p.r.n. systolic blood pressure greater than 180 or diastolic greater than 100. She will discontinue her hydralazine. She will continue fluoxetine, isosorbide, rosuvastatin, Vascepa, Plavix, metoclopramide, metoprolol, and aspirin. FOLLOWUP: She will follow up with her PCP. She says she has an appointment with Dr. Florian on and she should follow up with Dr. Orona as well. Again, the patient will likely need referral to Endocrinology in order to continue to look for evidence of the pheochromocytoma and her urine studies should be back around that time. Job ID: [id number] MTDD
[2019-06-26 14:10] LABS: Dopamine 24H Ur 176 ug/24 hr (0-510); Dopamine,Ur 69 ug/L (Undefined); Epinephrine 24H Ur 5 ug/24 hr (0-20); Epinephrine,Ur 2 ug/L (Undefined); Norephinephrine 24H U 54 ug/24 hr (0-135); Norephinephrine,Ur 21 ug/L (Undefined)
[2019-06-27 19:08] LABS: Metanephrine,Plasma 37 pg/mL (0-62); Normetanephrine,Pl 88 pg/mL (0-145)
== END 2019-06-21 11:32 | disposition home or self-care (01) ==
LOC: ERS 19:42 → 2SW 06-19 01:43 → ERHOLD 06-19 02:04 → 2SW 06-19 06:57
PROVIDERS: ADMIT Internal Medicine; ATTEND Internal Medicine
DX: I16.0 Hypertensive urgency (principal); I10 Essential (primary) hypertension; E78.00 Pure hypercholesterolemia, unspecified; I25.10 Atherosclerotic heart disease of native coronary artery without angina pectoris; I25.2 Old myocardial infarction; E27.9 Disorder of adrenal gland, unspecified; Z87.891 Personal history of nicotine dependence; Z79.82 Long term (current) use of aspirin; Z79.899 Other long term (current) drug therapy; Z86.73 Personal history of transient ischemic attack (TIA), and cerebral infarction without residual deficits
CPT/HCPCS: 70450; 70496; 70498; 71045; 80048; 82024; 82384; 82533; 82553; 82627; 83605; 83690; 83735; 83835; 84145; 84270; 84403; 84484 ×3; 85025; 87086; 93005; 96361 ×4; 96365; 96375 ×2; 96376 ×3; 97139 ×2; 99285; G0378 ×4; 36415; 80053; 81003; 81015; 84443; J1200; J2765; Q0162; Q9967; S0028

== ENCOUNTER 2022-12-23 10:39 | Outpatient (CLI) | payer MEDICARE, BC | END 2022-12-23 10:40 | disposition home or self-care (01) | LOC: BICMAMMO 10:39 | PROVIDERS: ATTEND Internal Medicine | DX: M81.0 Age-related osteoporosis without current pathological fracture (principal); M85.89 Other specified disorders of bone density and structure, multiple sites | CPT/HCPCS: 77080 ==

== ENCOUNTER 2023-08-21 08:09 | Outpatient (CLI) | payer MEDICARE, BC | END 2023-08-21 08:10 | disposition home or self-care (01) | LOC: BICCT 08:09 | PROVIDERS: ATTEND Internal Medicine Critical Care Medicine | DX: J84.9 Interstitial pulmonary disease, unspecified (principal); K44.9 Diaphragmatic hernia without obstruction or gangrene; J43.2 Centrilobular emphysema; J84.10 Pulmonary fibrosis, unspecified | CPT/HCPCS: 71250 ==

== ENCOUNTER 2023-09-25 17:00 | Outpatient (CLI) | payer MEDICARE, BC | END 2023-09-25 17:01 | disposition home or self-care (01) | LOC: SLEEPLAB 17:00 | PROVIDERS: ATTEND Internal Medicine Critical Care Medicine | DX: G47.30 Sleep apnea, unspecified (principal); R09.02 Hypoxemia | CPT/HCPCS: 95800 ==

== ENCOUNTER 2025-05-22 10:05 | Outpatient (CLI) | payer MEDICARE, BC | END 2025-05-22 10:06 | disposition home or self-care (01) | LOC: RAD 10:05 | PROVIDERS: ATTEND Internal Medicine Critical Care Medicine | DX: R06.00 Dyspnea, unspecified (principal); J84.10 Pulmonary fibrosis, unspecified | CPT/HCPCS: 71046 ==